=== PATIENT | female | born 1930 ===

== ENCOUNTER 2018-11-25 16:11 | Observation (INO) | payer MEDICARE, BC ==
[2018-11-25 16:39] LABS: ADD MAN DIFF? NO
[2018-11-25 16:51] LABS: WHITE BLOOD COUNT 7.7 10^3/ul (4.8-10.8)
[2018-11-25 16:51] LABS: BASOPHIL # 0.1 10^3/ul (0.0-0.1); EOSINOPHILS # 0.3 10^3/ul (0.0-0.5); EOSINOPHILS % 4.2 % (0.0-7.0); HEMATOCRIT 32.7 % (37.0-47.0); HEMOGLOBIN 10.1 g/dl (12.0-16.0); LYMPHOCYTES # 2.7 10^3/ul (0.8-2.9); LYMPHOCYTES % 35.3 % (15.0-51.0); MEAN CORPUSCULAR HEMOGLOBIN 29.2 pg (29.0-33.0); MEAN CORPUSCULAR HGB CONC 30.9 g/dl (32.0-37.0); MEAN CORPUSCULAR VOLUME 94.5 fl (82.0-101.0); MEAN PLATELET VOLUME 10.7 fl (7.4-10.4); MONOCYTE # 0.4 10^3/ul (0.3-0.9); MONOCYTES % 4.7 % (0.0-11.0); NEUTROPHIL # 4.2 10^3/ul (1.6-7.5); NEUTROPHILS % 54.4 % (39.0-77.0); PLATELET COUNT 299 10^3/UL (140-415); RED BLOOD COUNT 3.46 10^6/ul (4.20-5.40); RED CELL DISTRIBUTION WIDTH 15.2 % (11.5-14.5)
[2018-11-25 17:10] LABS: ALBUMIN/GLOBULIN RATIO 1.14; ALKALINE PHOSPHATASE 85 IU/L (42-121); ANION GAP 13 (5-13); ASPARTATE AMINO TRANSFERASE 17 IU/L (15-46); BILIRUBIN,INDIRECT 0.5 mg/dl (0-1.1); BILIRUBIN,TOTAL 0.5 mg/dl (0.2-1.3); BLOOD UREA NITROGEN 21 mg/dl (7-20); CALCIUM 8.5 mg/dl (8.4-10.2); CARBON DIOXIDE 24 mmol/L (21-31); CHLORIDE 106 mmol/L (97-110); CREATININE 1.24 mg/dl (0.44-1.00); GLUCOSE 122 mg/dl (70-220); INR 0.92; PROTIME 12.5 Sec (11.9-14.9); SODIUM 143 mmol/L (135-144); TOTAL PROTEIN 7.5 g/dl (6.1-8.1)
[2018-11-25 17:11] LABS: PARTIAL THROMBOPLASTIN TIME 29.1 Sec (23.0-35.0)
[2018-11-25 17:16] LABS: ALANINE AMINOTRANSFERASE < 6 IU/L (13-69)
[2018-11-25 17:17] LABS: AADO2 Arterial 66.9 mmHg (7.0-24.0); Allen Test ACCEPTAB; Arterial Base Excess -2.4 mmol/L (-3.0-3); Arterial Blood Gas Oxygen Sat 97.7 mmHG (95.0-100.0); Arterial COHb 0.3 % (0.0-3.0); Arterial Fraction of Oxyhgb 97.2 % (93.0-99.0); Arterial HCO3 21.8 mmol/L (22.0-26.0); Arterial MetHb 0.2 % (0.0-1.5); Arterial pCO2 35.4 mmhg (35-45); MODE NASAL CANNULA; Site Right Radial
[2018-11-25 17:18] LABS: B-TYPE NATRIURETIC PEPTIDE 7530 PG/ML (0-450)
[2018-11-25 17:21] LABS: TROPONIN-I 0.084 ng/ml (0.000-0.120)
[2018-11-25 17:59] LABS: ADD UMIC YES; UR ASCORBIC ACID NEGATIVE (NEGATIVE); UR BACTERIA MANY /HPF (NONE SEEN); UR BILIRUBIN (Dip) NEGATIVE (NEGATIVE); UR BLOOD (Dip) NEGATIVE (NEGATIVE); UR CLARITY SLIGHTLY CLOUDY (CLEAR); UR COLOR YELLOW (YELLOW); UR GLUCOSE (Dip) NEGATIVE (NEGATIVE); UR KETONES (Dip) NEGATIVE (NEGATIVE); UR LEUKOCYTE ESTERASE (Dip) 2+ Leu/ul (NEGATIVE); UR NITRITE (Dip) NEGATIVE (NEGATIVE); UR RBC 4 /HPF (0-5); UR SQUAMOUS EPITHELIAL CELL FEW /HPF (FEW); UR TOTAL PROTEIN (Dip) NEGATIVE (NEGATIVE); UR UROBILINOGEN (Dip) NEGATIVE (NEGATIVE); UR WBC 15 /HPF (0-5)
[2018-11-25 18:52] LABS: LACTIC ACID 1.1 mmol/L (0.5-2.0)
[2018-11-25] MEDS: FUROSEMIDE 20 MG INJ IV (19:17)
[2018-11-25] MEDS ORDERED: ONDANSETRON 4 MG INJ IV (19:30)
[2018-11-25] MEDS ORDERED: ACETAMINOPHEN 325 MG TAB PO (19:30)
[2018-11-25] MEDS ORDERED: NACL 0.9% 3 ML SYG IV (19:30)
[2018-11-25] MEDS ORDERED: morphine 2 MG INJ IV (19:30)
[2018-11-25 23:20] LABS: LACTIC ACID 1.5 mmol/L (0.5-2.0)
[2018-11-26] MEDS: HEPARIN 5,000 UNIT/1 ML VIAL SC ×2 (00:43→08:34)
[2018-11-26] MEDS: CEFTRIAXONE 1 GM/50 ML (PMX) 50 ML IVPB (00:43)
[2018-11-26] MEDS: QUETIAPINE 25 MG TAB PO (03:38)
[2018-11-26] MEDS: GABAPENTIN 300 MG CAP PO (03:38)
[2018-11-26] MEDS: PANTOPRAZOLE (EC) 40 MG TAB PO (05:18)
[2018-11-26] MEDS: FUROSEMIDE 20 MG INJ IV (05:18)
[2018-11-26 05:52] LABS: ADD MAN DIFF? NO
[2018-11-26 06:00] LABS: WHITE BLOOD COUNT 7.1 10^3/ul (4.8-10.8)
[2018-11-26 06:00] LABS: BASOPHIL # 0.1 10^3/ul (0.0-0.1); BASOPHILS % 0.8 % (0.0-2.0); EOSINOPHILS # 0.1 10^3/ul (0.0-0.5); EOSINOPHILS % 0.8 % (0.0-7.0); HEMATOCRIT 28.5 % (37.0-47.0); HEMOGLOBIN 9.2 g/dl (12.0-16.0); MEAN CORPUSCULAR HEMOGLOBIN 29.7 pg (29.0-33.0); MEAN CORPUSCULAR HGB CONC 32.3 g/dl (32.0-37.0); MEAN CORPUSCULAR VOLUME 91.9 fl (82.0-101.0); MEAN PLATELET VOLUME 10.7 fl (7.4-10.4); MONOCYTE # 0.5 10^3/ul (0.3-0.9); MONOCYTES % 6.8 % (0.0-11.0); NEUTROPHIL # 5.5 10^3/ul (1.6-7.5); NEUTROPHILS % 77.2 % (39.0-77.0); PLATELET COUNT 255 10^3/UL (140-415); RED CELL DISTRIBUTION WIDTH 14.8 % (11.5-14.5)
[2018-11-26 06:29] LABS: ANION GAP 9 (5-13); BLOOD UREA NITROGEN 22 mg/dl (7-20); CALCIUM 8.9 mg/dl (8.4-10.2); CARBON DIOXIDE 28 mmol/L (21-31); CHLORIDE 104 mmol/L (97-110); CREATININE 1.26 mg/dl (0.44-1.00); GLUCOSE 108 mg/dl (70-220); MAGNESIUM 1.8 mg/dl (1.7-2.5); PHOSPHORUS 4.5 mg/dl (2.5-4.9); POTASSIUM 4.3 mmol/L (3.5-5.1); SODIUM 141 mmol/L (135-144)
[2018-11-26] MEDS: LOSARTAN 50 MG TAB PO (08:27)
[2018-11-26] MEDS: CLOPIDOGREL 75 MG TAB PO (08:27)
[2018-11-26] MEDS: AMLODIPINE 10 MG TAB PO (08:28)
[2018-11-26] MEDS: HYDROCODONE/APAP (5/325) TAB PO (16:01)
== END 2018-11-26 17:30 | disposition home or self-care (01) ==
LOC: 6WM 18:31 → E/R 16:11 → 6WM 19:41
DX: I11.0 Hypertensive heart disease with heart failure (principal); I50.23 Acute on chronic systolic (congestive) heart failure; I25.10 Atherosclerotic heart disease of native coronary artery without angina pectoris; G31.83 Neurocognitive disorder with Lewy bodies; F02.80 Dementia in other diseases classified elsewhere, unspecified severity, without behavioral disturbance, psychotic disturbance, mood disturbance, and anxiety; I73.9 Peripheral vascular disease, unspecified; D64.9 Anemia, unspecified; N28.9 Disorder of kidney and ureter, unspecified
CPT/HCPCS: 36600; 71045; 80048; 80053; 81001; 82803; 83605; 83735; 83880; 84100; 84484; 85025; 85610; 85730; 87040-91; 87086; 93005; 93306; 96374; 99285-25; G0378